=== PATIENT | female | born 1990 | race Caucasian/White ===

== ENCOUNTER 2021-08-20 08:57 | Inpatient (IN) | payer OTHER ==
[~2021-08-20] VITALS: Ht 165.1 cm; Wt 96.6 kg
[2021-08-20] MEDS ORDERED: PRENATAL FORMU1 EACH PO (10:13)
[2021-08-20 10:46] LABS: HCT 36.1 % (37.0-47.0); HGB 11.8 g/dl (12.5-16.0); MCH 26.8 pg (25.0-31.0); MCHC 32.7 g/dL (32.0-36.0); MCV 81.9 fL (78.0-100.0); MPV 11.4 fL (6.0-9.5); RBC 4.41 M/uL (4.20-5.40); RDW 14.2 % (11.5-14.0); WBC 9.5 K/uL (4.0-10.5)
[2021-08-20 10:46] LABS: BILIRUBIN NEGATIVE (NEGATIVE); BLOOD NEGATIVE Ery/uL (NEGATIVE); CLARITY CLEAR (CLEAR); COLOR YELLOW (YELLOW); GLUCOSE (U) NORMAL (NORMAL); LEUKOCYTES NEGATIVE Leu/uL (NEGATIVE); NITRITE NEGATIVE (NEGATIVE); PROTEIN TRACE (LOW) mg/dL (NEGATIVE); SPECIFIC GRAVITY >=1.030 (1.001-1.030); UROBILINOGEN 0.2 mg/dL (0.2-1.0)
[2021-08-20 11:05] LABS: BACTERIA 4+
[2021-08-20 11:06] LABS: ALBUMIN 2.6 g/dL (3.4-5.0); BILIRUBIN - TOTAL 0.4 mg/dL (0.2-1.0); BUN/CREAT RATIO (CALC) 13.5 RATIO; CREATININE 0.74 mg/dL (0.51-0.95); GLOBULIN (CALCULATION) 4.1 g/dL; POTASSIUM 3.9 mmol/L (3.5-5.1); TOTAL PROTEIN 6.7 g/dL (6.4-8.2)
[2021-08-20 14:04] LABS: URIC ACID 7.5 mg/dL (2.6-6.2)
[2021-08-20 14:47] LABS: PROTEIN:CREATININE 0.18 RATIO; URINE CREATININE 246.82 mg/dL (29.00-226.00); URINE TOTAL PROTEIN-RANDOM 45.5 mg/dL (<11.9)
[2021-08-21 12:35] LABS: BILIRUBIN 1+ mg/dL (NEGATIVE); BLOOD 3+ Ery/uL (NEGATIVE); CLARITY CLEAR (CLEAR); COLOR YELLOW (YELLOW); GLUCOSE (U) NORMAL (NORMAL); LEUKOCYTES TRACE Leu/uL (NEGATIVE); NITRITE NEGATIVE (NEGATIVE); PROTEIN 2+ mg/dL (NEGATIVE); SPECIFIC GRAVITY >=1.030 (1.001-1.030); UROBILINOGEN 0.2 mg/dL (0.2-1.0)
[2021-08-21 12:45] LABS: BACTERIA 1+; MUCOUS MODERATE; URINARY RBC TNTC
[2021-08-22 06:52] LABS: HCT 30.3 % (37.0-47.0); HGB 9.8 g/dl (12.5-16.0); MCH 26.9 pg (25.0-31.0); MCHC 32.3 g/dL (32.0-36.0); MCV 83.2 fL (78.0-100.0); MPV 11.1 fL (6.0-9.5); RBC 3.64 M/uL (4.20-5.40); RDW 14.8 % (11.5-14.0); WBC 14.2 K/uL (4.0-10.5)
== END 2021-08-23 13:15 | disposition home or self-care (01) | DRG 787 ==
LOC: FOB 08:57
PROVIDERS: Obstetrics & Gynecology; ADMIT Specialist
PROC: 10907ZC Drainage of Amniotic Fluid, Therapeutic from Products of Conception, Via Natural or Artificial Opening (ICD-10-PCS; 2021-08-21)
PROC: 3E0P7VZ Introduction of Hormone into Female Reproductive, Via Natural or Artificial Opening (ICD-10-PCS; 2021-08-21)
PROC: 10D00Z1 Extraction of Products of Conception, Low, Open Approach (ICD-10-PCS; principal; 2021-08-21 10:26)
DX: O62.1 Secondary uterine inertia (principal); D62 Acute posthemorrhagic anemia; O99.354 Diseases of the nervous system complicating childbirth; O13.4 Gestational [pregnancy-induced] hypertension without significant proteinuria, complicating childbirth; Z37.0 Single live birth; Z3A.39 39 weeks gestation of pregnancy; Z20.822 Contact with and (suspected) exposure to COVID-19; G43.909 Migraine, unspecified, not intractable, without status migrainosus; O99.03 Anemia complicating the puerperium; Z88.1 Allergy status to other antibiotic agents
CPT/HCPCS: 36415; 80053; 81001; 82570; 83615; 84156; 84550; 86850; 86900; 86901; J0456; J0595; J1580; J1885; J2001; J2274; J2370; J2405; J2795; J2916; J7050; J7120; U0002